=== PATIENT | female | born 2000 | race Caucasian/White ===

== ENCOUNTER 2018-06-25 04:29 | Emergency (ER) | payer OTHER ==
[~2018-06-25] VITALS: Ht 162.6 cm; Wt 70.9 kg
--- NOTE | 2018-06-25 04:52 | PHYS DOC ---
Adult General Chief Complaint Chief Complaint: low back pain HPI HPI Patient is a 17 year old female who presents with complaint of right flank pain. Patient states that she started having pain yesterday afternoon at approximately 1600. States that her pain has been sharp and radiates towards the right side of her abdomen. States that it does worsen when she walks, moves, and when she urinates. Noticed that her urine has gotten darker since onset of symptoms. Denies any known fever. Has had nausea. Has not taken any medications for symptoms. Patient states she tried taking a hot shower thinking it could be musculoskeletal back pain, however this did not help her symptoms. Rates her pain currently as 8 out of 10. Denies any significant past medical history and no previous abdominal surgeries. Denies history of similar symptoms. Currently on Depo-Provera. Last menstrual period was in 2017. Review of Systems Review of Systems Constitutional: Denies fever or chills [] Eyes: Denies change in visual acuity, redness, or eye pain [] HENT: Denies nasal congestion or sore throat [] Respiratory: Denies cough or shortness of breath [] Cardiovascular: Denies chest pain or edema[] GI: Right mid abdominal pain, nausea, denies vomiting, bloody stools or diarrhea [] : Denies dysuria or hematuria [] Musculoskeletal: Right flank pain[] Integument: Denies rash or skin lesions [] Neurologic: Denies headache, focal weakness or sensory changes [] All other systems were reviewed and found to be within normal limits, except as documented in this note. Allergies Allergies No known drug allergies Physical Exam Physical Exam Constitutional: Alert, afebrile, appears in [id number] discomfort. [] HENT: Normocephalic, atraumatic, bilateral external ears normal, oropharynx moist, no oral exudates, nose normal. [] Eyes: PERRLA, EOMI, conjunctiva normal, no discharge. [] Neck: Normal range of motion, no tenderness, supple, no stridor. [] Cardiovascular:Heart rate regular rhythm, no murmur [] Lungs & Thorax: Bilateral breath sounds clear to auscultation [] Abdomen: Bowel sounds normal, soft, right mid abdominal and right flank tenderness to palpation, no guarding or rebound tenderness ,no masses, no pulsatile masses. [] Skin: Warm, dry, no erythema, no rash. [] Back: Right CVA tenderness, no midline tenderness, no flank ecchymosis. [] Extremities: No tenderness, no cyanosis, no clubbing, ROM intact, no edema. [] Neurologic: Alert and oriented X 3, normal motor function, normal sensory function, no focal deficits noted. [] Current Patient Data Vital Signs Temperature 99.1F, heart rate 100 bpm, blood pressure 118/63, pulse oximetry 98% on room air Lab Results Laboratory Tests Test 06/25/18 04:40 06/25/18 04:56 Urine Collection Type Void Urine Color Yellow Urine Clarity Cloudy Urine pH 5.5 Urine Specific [place] 1.025 Urine Protein >100 mg/dl Urine Glucose (UA) Neg mg/dL Urine Ketones (Stick) Neg mg/dL Urine Blood Large Urine Nitrite Pos Urine Bilirubin Neg Urine Urobilinogen Dipstick 0.2 mg/dL Urine Leukocyte Esterase Mod Urine RBC 11-20 /HPF Urine WBC >40 /HPF Urine Squamous Epithelial Cells Few /LPF Urine Bacteria Few /HPF Urine Mucus Slight /LPF Bedside Urine HCG, Qualitative hcg negative Current Medications Medications (Trade) Dose Ordered Sig/Kym Route PRN Reason Start Time Stop Time Status Last Admin Dose Admin Morphine Sulfate (Morphine 4mg Syringe) 4 mg 1X ONCE IM 06/25/18 05:15 06/25/18 05:16 UNV 06/25/18 05:15 Ceftriaxone Sodium (Rocephin Im) 1 gm 1X ONCE IM 06/25/18 05:45 06/25/18 05:46 UNV EKG EKG Not performed[] Radiology/Procedures Radiology/Procedures [address] [address] IMAGING REPORT Signed PATIENT: LADY CERVANTES ACCOUNT: [id number] : 2000 LOCATION: ER AGE: 17 SEX: F EXAM STATUS: REG ER ORD. PHYSICIAN: RE RODRÍGUEZ MD REASON: right flank pain PROCEDURE: CT ABDOMEN PELVIS WO CONTRAST PQRS Compliance Statement: One or more of the following individualized dose reduction techniques were utilized for this examination: 1. Automated exposure control 2. Adjustment of the mA and/or kV according to patient size 3. Use of iterative reconstruction technique CT ABDOMEN PELVIS WO CONTRAST Clinical Indication: Right flank pain. Comparison: None. Technique: Helical CT imaging of the abdomen and pelvis is performed without IV or oral contrast. Findings: Evaluation of solid organs and bowel is limited without oral and IV contrast, decreasing sensitivity for detection of pathology. Lung bases are clear. Cardiac size normal. Liver, gallbladder, spleen, pancreas, adrenal glands, and abdominal aorta are normal. Please note noncontrast CT is not sensitive for evaluation of pyelonephritis. No renal, ureteral, or bladder calculus is identified. No perinephric stranding or hydronephrosis is seen. Urinary bladder is not well distended accentuating wall thickness. Stomach unremarkable. No dilated small bowel. The appendix is normal. Scattered stool in the colon. No colon wall thickening. No abdominal adenopathy or free fluid. Uterus unremarkable. Ovaries not well seen. No pelvic free fluid is identified. No acute bone abnormality. IMPRESSION: No acute abdominal or pelvic abnormality. No obstructive uropathy. Electronically signed by: Acosta Purvis MD (06/25/2018 5:34 AM) [facility] DICTATED AND SIGNED BY: ACOSTA PURVIS MD DATE: 06/25/18 0534 CC: RE RODRÍGUEZ MD; PCP,NO ~ [] Course & Med Decision Making Course & Med Decision Making Pertinent Labs and Imaging studies reviewed. (See chart for details) Patient was given IM morphine to help with pain. Urinalysis confirms evidence of urinary tract infection. Given presence of flank pain, patient's diagnosis is consistent with acute pyelonephritis. Patient was given IM Rocephin in the emergency department. Will continue 10 day course of Keflex for outpatient treatment. Advised follow-up with primary doctor in 4-5 days for reevaluation and return to the emergency department for any worsening symptoms. Patient voiced understanding and in agreement with treatment plan.[] Dragon Disclaimer Dragon Disclaimer This electronic medical record was generated, in whole or in part, using a voice recognition dictation system. Departure Departure: Impression: Primary Impression: Acute pyelonephritis Disposition: 01 HOME, SELF-CARE Condition: IMPROVED Referrals: PCP,NO (PCP) Patient Instructions: Pyelonephritis, Adult Additional Instructions: Follow-up with your primary doctor in 4-5 days for reevaluation. Return to the emergency department for any worsening symptoms. Scripts Cephalexin (KEFLEX) 500 Mg Capsule 1 CAP PO BID, #20 CAP Prov: RE RODRÍGUEZ MD 06/25/18 RE RODRÍGUEZ MD June 25, 2018 04:52
[2018-06-25] MEDS ORDERED: MORPHINE SULFATE 4 MG/ML DISP.SYRIN. IM ONE (05:15)
[2018-06-25 05:23] LABS: BILIRUBIN,URINE NEG (NEG); CLARITY,URINE CLOUDY; COLOR,URINE YELLOW; GLUCOSE,URINE NEG (NEG)
[2018-06-25 05:24] LABS: BACTERIA,URINE FEW /HPF (0-FEW); NITRITE,URINE POS (NEG); SQUAMOUS EPITHELIAL CELL,UR FEW /LPF; UROBILINOGEN,URINE 0.2 mg/dL (0.2 mg/dL); WBC,URINE >40 /HPF (0-4)
--- NOTE | 2018-06-25 05:37 | RAD ---
PQRS Compliance Statement: One or more of the following individualized dose reduction techniques were utilized for this examination: 1. Automated exposure control 2. Adjustment of the mA and/or kV according to patient size 3. Use of iterative reconstruction technique CT ABDOMEN PELVIS WO CONTRAST Clinical Indication: Right flank pain. Comparison: None. Technique: Helical CT imaging of the abdomen and pelvis is performed without IV or oral contrast. Findings: Evaluation of solid organs and bowel is limited without oral and IV contrast, decreasing sensitivity for detection of pathology. Lung bases are clear. Cardiac size normal. Liver, gallbladder, spleen, pancreas, adrenal glands, and abdominal aorta are normal. Please note noncontrast CT is not sensitive for evaluation of pyelonephritis. No renal, ureteral, or bladder calculus is identified. No perinephric stranding or hydronephrosis is seen. Urinary bladder is not well distended accentuating wall thickness. Stomach unremarkable. No dilated small bowel. The appendix is normal. Scattered stool in the colon. No colon wall thickening. No abdominal adenopathy or free fluid. Uterus unremarkable. Ovaries not well seen. No pelvic free fluid is identified. No acute bone abnormality. IMPRESSION: No acute abdominal or pelvic abnormality. No obstructive uropathy. Electronically signed by: Acosta Zuleta MD (06/25/2018 5:34 AM) [facility]
[2018-06-25] MEDS ORDERED: CEPH-264 PO (05:44)
[2018-06-25] MEDS ORDERED: cefTRIAXone IM 1 GM VIAL IM ONE (05:45)
[2018-06-25 06:30] VITALS: BP 102/65
== END 2018-06-25 06:30 | disposition home or self-care (01) ==
LOC: ER 04:37
DX: N10 Acute pyelonephritis (principal)
CPT/HCPCS: 74176; 81001; 81025; 87086; 96372; 99285; J0696; J2270

== ENCOUNTER 2019-02-24 18:51 | Emergency (ER) | payer OTHER ==
[~2019-02-24] VITALS: Ht 162.6 cm; Wt 69.9 kg
[~2019-02-24 18:51] MED LIST: CEPH-264 PO
[2019-02-24 19:00] VITALS: BP 119/74
[2019-02-24] MEDS ORDERED: AMOX875T PO ×2 (19:30→19:55)
--- NOTE | 2019-02-24 21:58 | PHYS DOC ---
Past History Past Medical History: No Pertinent History, Depression Past Surgical History: No Surgical History, Other Additional Past Surgical Histo: WISDOM TEETH Alcohol Use: Rarely Drug Use: None Adult General Chief Complaint Chief Complaint: FACE PROBLEM HPI HPI Patient is a 18-year-old female presenting with right TMJ pain onset about 34 hours ago feels like that area is popping when she opens her mouth. In addition she notes some swelling in her lower neck area no fever no trauma symptoms are moderate worsening with time she also had some pain in her right ear. Review of Systems Review of Systems Constitutional: Denies fever or chills [] Eyes: Denies change in visual acuity, redness, or eye pain [] HENT: Denies nasal congestion or sore throat [] Respiratory: Denies cough or shortness of breath [] Cardiovascular: No additional information not addressed in HPI [] GI: Denies abdominal pain, nausea, vomiting, bloody stools or diarrhea [] : Denies dysuria or hematuria [] Allergies Allergies Allergies Coded Allergies Type Severity Reaction Last Updated Verified No Known Drug Allergies 06/25/18 No Physical Exam Physical Exam Constitutional: Well developed, well nourished, no acute distress, non-toxic appearance. [] HENT: There is some tenderness to palpation noted to the right TMJ there is 0.5 cm anterior cervical lymphadenopathy on that side as well as some erythema of the right ear canal. Possible mild erythema just overlying the TMJ area teeth appear normal Eyes: PERRLA, EOMI, conjunctiva normal, no discharge. [] Neck: Normal range of motion, no tenderness, supple, no stridor. [] Cardiovascular:Heart rate regular rhythm, no murmur [] Lungs & Thorax: Bilateral breath sounds clear to auscultation [] Abdomen: Bowel sounds normal, soft, no tenderness, no masses, no pulsatile masses. [] Skin: Warm, dry, no erythema, no rash. [] Back: No tenderness, no CVA tenderness. [] Extremities: No tenderness, no cyanosis, no clubbing, ROM intact, no edema. [] Neurologic: Alert and oriented X 3, normal motor function, normal sensory function, no focal deficits noted. [] Psychologic: Affect normal, judgement normal, mood normal. [] Current Patient Data Vital Signs Vital Signs Date Time Temp Pulse Resp B/P (MAP) Pulse Ox O2 Delivery O2 Flow Rate FiO2 02/24/19 19:00 98.4 69 16 99 Room Air * None Temperature (Fahrenheit): * 98.4 degrees F (97.6-99.5) Patient Temperature * 98.4 degrees F (97.5-99.5) Temperature Source * Oral Blood Pressure Systolic * 119 mm Hg (100-140) Blood Pressure Diastolic * 74 mm Hg (60-100) Blood Pressure Mean * 89 mm Hg Blood Pressure Location * Right Arm Blood Pressure Source * Automatic Cuff Pulse Rate * 69 beats per minute (60-90) Pulse Assessment Method * Monitor Respiratory Rate * 16 breaths per minute (12-24) Oxygen Delivery Method * Room Air Bedside Pulse Oximetry * 99 % Treatment Prior to Arrival * No Complaint of Pain EKG EKG [] Radiology/Procedures Radiology/Procedures [] Course & Med Decision Making Course & Med Decision Making Pertinent Labs and Imaging studies reviewed. (See chart for details) []Could be TMJ there is also some erythema of the ear canal there are some lymphadenopathy and possible very mild erythema of the skin so we will try some antibiotics in case of early cellulitis otherwise ice the area take Advil as needed return precautions discussed at this point time there is no facial swelling or other concerning features. Dragon Disclaimer Dragon Disclaimer This electronic medical record was generated, in whole or in part, using a voice recognition dictation system. Departure Departure: Impression: Primary Impression: Jaw pain Disposition: 01 HOME, SELF-CARE Condition: STABLE Patient Instructions: Temporomandibular Problems Scripts Amoxicillin (AMOXICILLIN) 875 Mg Tablet 1 TAB PO BID for jaw infection, #14 TAB Prov: OLIVIER ALBERT MD 02/24/19 Amoxicillin (AMOXICILLIN) 875 Mg Tablet 1 TAB PO BID for lymphadenopathy, #14 TAB Prov: OLIVIER ALBERT MD 02/24/19 OLIVIER ALBERT MD Feb 24, 2019 21:58
== END 2019-02-24 19:58 | disposition home or self-care (01) ==
LOC: ER 18:51
DX: R68.84 Jaw pain (principal); H92.01 Otalgia, right ear
CPT/HCPCS: 99283

== ENCOUNTER 2019-03-06 19:16 | Emergency (ER) | payer OTHER ==
[~2019-03-06] VITALS: Ht 162.6 cm; Wt 71.0 kg
[~2019-03-06 19:16] MED LIST changes: +AMOX875T PO
[2019-03-06] MEDS ORDERED: HYDROcodone/APAP 5/325MG 1 TAB TABLET PO ONE (19:45)
--- NOTE | 2019-03-06 20:10 | PHYS DOC ---
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 Patient denies headache, loss of consciousness, dizziness nausea vomiting. Denies neck pain. Reports right ankle pain with swelling and tenderness. No knee pain, hip pain. No other injuries or pain complaints. Injury occurred just prior to ED arrival. Medications were therapy is attempted prior to ED arrival. Patient Review of Systems Review of symptoms as per history of present illness. All other review symptoms are negative. All other systems were reviewed and found to be within normal limits, except as documented in this note. Current Medications Current Medications Medications (Trade) Dose Ordered Sig/Kym Start Time Stop Time Status Last Admin Dose Admin Acetaminophen/ Hydrocodone Bitart (Lortab 5/325) 1 tab 1X ONCE 03/06/19 19:45 03/06/19 19:46 DC Allergies Allergies Coded Allergies Type Severity Reaction Last Updated Verified No Known Drug Allergies 06/25/18 No Physical Exam Constitutional: Well developed, well nourished, no acute distress, non-toxic appearance, positive interaction, playful. HENT: Normocephalic, atraumatic, bilateral external ears normal, oropharynx moist, no oral exudates, nose normal. Eyes: PERLL, EOMI, conjunctiva normal, no discharge. Neck: Normal range of motion, no tenderness, supple, no stridor. Cardiovascular: Normal heart rate, normal rhythm, no murmurs, no rubs, no gal lops. Thorax and Lungs: Normal breath sounds, no respiratory distress, no wheezing, no chest tenderness, no retractions, no accessory muscle use.. Extremeties: Right ankle, no deformities, subtle swelling over dorsum ankle/mid foot, range of motion intact, right knee, no pain tenderness swelling deformity, range of motion intact. Right hip, no pain, tenderness, swelling deformity or pain with range of motion. Musculoskeletal: Good ROM in all major joints, no tenderness to palpation or major deformities noted. Neurologic: Alert and oriented X 3, normal motor function, normal sensory function, no focal deficits noted. Psychologic: Affect normal, judgement normal, mood normal. Radiology/Procedures [Right ankle x-ray: No obvious displaced fracture] Current Patient Data Active Scripts Medications Dose Route/Sig Max Daily Dose Days Date Category Amoxicillin 875 Mg Tablet 1 Tab PO BID 02/24/19 Rx Amoxicillin 875 Mg Tablet 1 Tab PO BID 02/24/19 Rx Keflex (Cephalexin) 500 Mg Capsule 1 Cap PO BID 06/25/18 Rx Vital Signs Date Time Temp Pulse Resp B/P (MAP) Pulse Ox O2 Delivery O2 Flow Rate FiO2 03/06/19 19:46 98.6 77 16 108/78 (88) 98 Room Air Vital Signs Date Time Temp Pulse Resp B/P (MAP) Pulse Ox O2 Delivery O2 Flow Rate FiO2 03/06/19 19:46 98.6 77 16 108/78 (88) 98 Room Air Vital Signs Date Time Temp Pulse Resp B/P (MAP) Pulse Ox O2 Delivery O2 Flow Rate FiO2 03/06/19 19:46 98.6 77 16 108/78 (88) 98 Room Air Course & Med Decision Making Pertinent Labs and Imaging studies reviewed. (See chart for details) [Ankle placed in splint. Recommend supportive care with PCP follow-up.] Departure Departure: Impression: Primary Impression: Right ankle sprain Disposition: HOME, SELF-CARE Condition: STABLE Referrals: HAIDER HAIR DO (PCP) Patient Instructions: Ankle Sprain Additional Instructions: Please limit and use crutches. Take ibuprofen for pain. Apply ice 20-30 minutes every 2-3 hours. Follow-up with PCP in 2-3 days if symptoms persist. AHMET TA DO Mar 06, 2019 20:10
--- NOTE | 2019-03-06 20:23 | RAD ---
Exam: Right ankle 3 views INDICATION: Trauma TECHNIQUE: Frontal, lateral and oblique views of the right ankle Comparisons: None FINDINGS: The cardiomediastinal silhouette and pulmonary vessels are within normal limits. The lung and pleural spaces are clear. IMPRESSION: No acute cardiopulmonary process. Electronically signed by: Tiffanie Wise MD (03/06/2019 8:20 PM) [facility]
[2019-03-06 20:34] VITALS: BP 101/55
== END 2019-03-06 20:35 | disposition home or self-care (01) ==
LOC: ER 19:16
DX: S93.401A Sprain of unspecified ligament of right ankle, initial encounter (principal); R60.9 Edema, unspecified; F32.9 Major depressive disorder, single episode, unspecified; Z98.890 Other specified postprocedural states; W22.8XXA Striking against or struck by other objects, initial encounter; Y93.89 Activity, other specified; Y92.89 Other specified places as the place of occurrence of the external cause; Y99.8 Other external cause status
CPT/HCPCS: 29515; 73610; 99284

== ENCOUNTER 2020-09-11 15:25 | Emergency (ER) | payer OTHER ==
[~2020-09-11] VITALS: Ht 162.6 cm; Wt 78.1 kg
[2020-09-11] MEDS ORDERED: ONDANSETRON ODT 4 MG TAB.RAPDIS PO ONE (16:15)
--- NOTE | 2020-09-11 16:24 | PHYS DOC ---
Past History Past Medical History: No Pertinent History, Depression Past Surgical History: Other Additional Past Surgical Histo: WISDOM TEETH Alcohol Use: Rarely Drug Use: None General Adult EDM: Chief Complaint: ABDOMINAL PAIN HPI: HPI: Patient is a 19-year-old female who presents with abdominal pain for 2 days. Patient was seen by urgent care yesterday and diagnosed with a UTI. Patient was started on Macrobid and has received 1 dose last night. Patient states "I have not taken any today because I felt too nauseous". Patient reports taking 600 mg of ibuprofen for pain. Denies fever. Denies health history Review of Systems: Review of Systems: Constitutional: Denies fever or chills Eyes: Denies change in visual acuity HENT: Denies nasal congestion or sore throat Respiratory: Denies cough or shortness of breath Cardiovascular: Denies chest pain or edema GI: Reports abdominal pain, nausea, vomiting. Denies bloody stools or diarrhea : Reports dysuria Musculoskeletal: Reports bilateral flank pain Integument: Denies rash Neurologic: Denies headache, focal weakness or sensory changes Endocrine: Denies polyuria or polydipsia Lymphatic: Denies swollen glands Psychiatric: Denies depression or anxiety Allergies: Allergies: Allergies Coded Allergies Type Severity Reaction Last Updated Verified No Known Drug Allergies 09/11/20 No Physical Exam: PE: Constitutional: Well developed, well nourished, no acute distress, non-toxic appearance. [] HENT: Normocephalic, atraumatic, bilateral external ears normal, oropharynx moist, no oral exudates, nose normal. [] Eyes: PERRLA, EOMI, conjunctiva normal, no discharge. [] Neck: Normal range of motion, no tenderness, supple, no stridor. [] Cardiovascular:Heart rate regular rhythm, no murmur [] Lungs & Thorax: Bilateral breath sounds clear to auscultation [] Abdomen: Bowel sounds normal, soft, no tenderness, no masses, no pulsatile masses. [] Skin: Warm, dry, no erythema, no rash. [] Back: No tenderness, no CVA tenderness. [] Extremities: No tenderness, no cyanosis, no clubbing, ROM intact, no edema. [] Neurologic: Alert and oriented X 3, normal motor function, normal sensory function, no focal deficits noted. [] Psychologic: Affect normal, judgement normal, mood normal. [] Current Patient Data: Vital Signs: Vital Signs Date Time Temp Pulse Resp B/P (MAP) Pulse Ox O2 Delivery O2 Flow Rate FiO2 09/11/20 15:35 99.9 109 18 111/68 98 Room Air EKG: EKG: [] Radiology/Procedures: Radiology/Procedures: []INDICATION: Reason: GENERALIZED ABD PAIN. HX OF KIDNEY AND BLADDER INFECTIONS / Spl. Instructions: / History: . COMPARISON: June 2018 TECHNIQUE: Axial CT images obtained through the abdomen and pelvis without contrast. One or more of the following individualized dose reduction techniques were utilized for this examination: 1. Automated exposure control; 2. Adjustment of the mA and/or kV according to patient size; 3. Use of iterative reconstruction technique. FINDINGS: Abdominal aorta is not aneurysmal. No intrahepatic bile duct dilation. No peripancreatic fluid collection. No perisplenic hematoma. No hydronephrosis. Urinary bladder is partially distended with thickening of the wall. 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 No appendiceal dilatation. No dilated loops of bowel to suggest obstruction. Small free fluid in the pelvis. Sclerotic foci at the L4 vertebral body most commonly from bone island in a patient of this age. There is some epidural lipomatosis. IMPRESSION: * Wall thickening of the urinary bladder. Could be secondary to causes such as cystitis. A bladder wall lesion could also have this appearance but would not be likely in a patient of this age. * No hydronephrosis. Electronically signed by: Oswald Newton MD (09/11/2020 5:37 PM) [id number] Heart Score: C/O Chest Pain: No Risk Factors: Risk Factors: DM, Current or recent (<one month) smoker, HTN, HLP, family h istory of CAD, obesity. Risk Scores: Score 0 - 3: 2.5% MACE over next 6 weeks - Discharge Home Score 4 - 6: 20.3% MACE over next 6 weeks - Admit for Clinical Observation Score 7 - 10: 72.7% MACE over next 6 weeks - Early Invasive Strategies Course & Med Decision Making: Course & Med Decision Making Pertinent Labs and Imaging studies reviewed. (See chart for details) [] 19-year-old female presents with abdominal pain for 2 days. Patient was diagnosed with a UTI yesterday at urgent care. Patient started her antibiotic last night and taken 2 doses. Patient states she feels like she has been running a fever. Temperature on arrival is 99.9. Patient was tachycardic and hypotensive. States that her abdominal pain radiates into bilateral flank. She reports [address] of abdomen pelvis negative for Carlos or hydronephrosis. Results are suggestion of cystitis. Labs are unremarkable. Patient's blood pressure, pain, and heart rate improved after fluid bolus. On reassessment pressure was 100/50, heart rate 92. Instructed patient to continue taking Macrobid as directed. Patient sent home with prescription for Pyridium and Zofran. Patient given strict return precautions. Patient to follow-up with PCP if symptoms do not improve. Ibuprofen and Tylenol at home for fever. Increase fluids. Dragon Disclaimer: Dragon Disclaimer: This electronic medical record was generated, in whole or in part, using a voice recognition dictation system. Departure Departure: Impression: Primary Impression: UTI (urinary tract infection) Qualified Codes: N30.00 - Acute cystitis without hematuria Disposition: HOME / SELF CARE / HOMELESS Condition: STABLE Referrals: HAIDER HAIR DO (PCP) Patient Instructions: Urinary Tract Infection, [id number] Additional Instructions: You are seen emergency room for bilateral flank pain, nausea and vomiting. CT of your abdomen was negative for any acute abnormalities. Your labs were unremarkable. Continue taking ibuprofen and Tylenol at home for discomfort. Continue taking your antibiotic for your UTI you were prescribed. Make sure you take as directed and in full. Follow-up with your PCP if symptoms do not improve. Return to emergency room with worsening symptoms or concerns. EMERGENCY DEPARTMENT GENERAL DISCHARGE INSTRUCTIONS Thank you for coming to [facility] (ED) today and trusting us with you care. We trust that you had a positivie experience in our Emergency Department. If you wish to speak to the department management, you may call the director at [phone]. YOUR FOLLOW UP INSTRUCTIONS ARE FOLLOWS: 1. Do you have a private Doctor? If you do not have a private doctor, please ask for a resource list of physicians or clinics that may be able to assist you with follow up care. 2. The Emergency Physician has interpreted your x-rays. The X-Ray specialist will also review them. If there is a change in the findings, you will be notified in 48 hours when at all possible. 3. A lab test or culture has been done, your results will be reviewed and you will be notified if you need a change in treatment. ADDITIONAL INSTRUCTIONS AND INFORMATION: 1. Your care today has been supervised by a physician who is specially trained in emergency care. Many problems require more than one evaluation for a complete diagnosis and treatment. We recommend that you schedule your follow up appointment as recommended to ensure complete treatment of you illness or injury. If you are unable to obtain follow up care and continue to have a problem, or if your condition worsens, we recommend that you return to the ED. 2. We are not able to safely determine your condition over the phone nor are we able to give sound medical advice over the phone. For these safety reasons, if you call for medical advice we will ask you to come to the ED for further evaluation. 3. If you have any questions regarding these discharge instructions please call the ED at [phone]. SAFETY INFORMATION: In the interest of safety, wellness, and injury prevention; we encourage you to wear your sealbelt, if you smoke; quite smoking, and we encourage family to use a pro tective helmet for bicycling and other sporting events that present an increased risk for head injury. IF YOUR SYMPTOMS WORSEN OR NEW SYMPTOMS DEVELOP, OR YOU HAVE CONCERNS ABOUT YOUR CONDITION; OR IF YOUR CONDITION WORSENS WHILE YOU ARE WAITING FOR YOUR FOLLOW UP APPOINTMENT; EITHER CONTACT YOUR PRIMARY CARE DOCTOR, THE PHYSICIAN WHOSE NAME AND NUMBER YOU WERE GIVEN, OR RETURN TO THE ED IMMEDIATELY. Scripts Ondansetron Hcl (ZOFRAN) 4 Mg Tablet 4 MG PO TID for nausea for 7 Days, #21 TAB Prov: GERALDINE BRAUN APRN 09/11/20 Phenazopyridine Hcl (PYRIDIUM) 200 Mg Tablet 1 TAB PO TID for urinary discomfort for 3 Days, #9 TAB 0 Refills Prov: GERALDINE BRAUN APRN 09/11/20 GERALDINE BRAUN APRN Sep 11, 2020 16:24
[2020-09-11] MEDS: IV NORMAL SALINE 1,000ML 1,000 ML IV ONE (17:26)
[2020-09-11] MEDS: KETOROLAC 15 MG/ML VIAL. IVP ONE (17:28)
[2020-09-11] MEDS: ONDANSETRON PF 4 MG/2 ML VIAL. IVP ONE (17:31)
[2020-09-11 17:33] LABS: BACTERIA,URINE 0 /HPF (0-FEW); BILIRUBIN,URINE NEG (NEG); CLARITY,URINE CLEAR; COLOR,URINE YELLOW; GLUCOSE,URINE NEG (NEG); NITRITE,URINE NEG (NEG); RBC,URINE 0 /HPF (0-2); SQUAMOUS EPITHELIAL CELL,UR FEW /LPF; UROBILINOGEN,URINE 0.2 mg/dL (0.2 mg/dL); WBC,URINE OCC /HPF (0-4)
--- NOTE | 2020-09-11 17:40 | RAD ---
INDICATION: Reason: GENERALIZED ABD PAIN. HX OF KIDNEY AND BLADDER INFECTIONS / Spl. Instructions: / History: . COMPARISON: June 2018 TECHNIQUE: Axial CT images obtained through the abdomen and pelvis without contrast. One or more of the following individualized dose reduction techniques were utilized for this examinat ion: 1. Automated exposure control; 2. Adjustment of the mA and/or kV according to patient size; 3 . Use of iterative reconstruction technique. FINDINGS: Abdominal aorta is not aneurysmal. No intrahepatic bile duct dilation. No peripancreatic fluid collection. No perisplenic hematoma. No hydronephrosis. Urinary bladder is partially distended with thickening of the wall. 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 No appendiceal dilatation. No dilated loops of bowel to suggest obstruction. Small free fluid in the pelvis. Sclerotic foci at the L4 vertebral body most commonly from bone island in a patient of this age. Ther e is some epidural lipomatosis. IMPRESSION: * Wall thickening of the urinary bladder. Could be secondary to causes such as cystitis. A bladder w all lesion could also have this appearance but would not be likely in a patient of this age. * No hydronephrosis. Electronically signed by: Oswald Newton MD (09/11/2020 5:37 PM) [id number]
[2020-09-11 17:55] LABS: BASO % 0 % (0-3); EOS % 0 % (0-3); HEMATOCRIT 39.8 % (36.0-47.0); HEMOGLOBIN 13.8 g/dL (12.0-15.5); LYMPH # 0.9 x10^3/uL (1.0-4.8); LYMPH % 8 % (24-48); MEAN CORPUSCULAR HEMOGLOBIN 31 pg (25-35); MEAN CORPUSCULAR HGB CONC 35 g/dL (31-37); MEAN CORPUSCULAR VOLUME 88 fL (79-100); MONO # 0.9 x10^3/uL (0.0-1.1); MONO % 8 % (0-9); NEUT # 8.9 x10^3uL (1.8-7.7); NEUT % 83 % (31-73); PLATELET COUNT 293 x10^3/uL (140-400); RED BLOOD COUNT 4.52 x10^6/uL (3.50-5.40); RED CELL DISTRIBUTION WIDTH 13.1 % (11.5-14.5); WHITE BLOOD COUNT 10.7 x10^3/uL (4.0-11.0)
[2020-09-11 18:00] LABS: CALCIUM 8.9 mg/dL (8.5-10.1); CREATININE 1.1 mg/dL (0.6-1.0); GFR 62.7
[2020-09-11 18:05] LABS: ALBUMIN 3.9 g/dL (3.4-5.0); TOTAL BILIRUBIN 0.3 mg/dL (0.2-1.0); TOTAL PROTEIN 7.8 g/dL (6.4-8.2)
[2020-09-11 18:57] VITALS: BP 100/50
[2020-09-11] MEDS ORDERED: PHEN-318 PO (18:57)
[2020-09-11] MEDS ORDERED: ONDA4TAB7 PO (18:59)
== END 2020-09-11 19:15 | disposition home or self-care (01) ==
LOC: ER 15:25
DX: N30.00 Acute cystitis without hematuria (principal)
CPT/HCPCS: 36415; 74176; 80053; 81001; 81025; 83690; 85025; 96361; 96374; 96375; J1885; J2405; 99284-25; 99285-25; J7030